=== PATIENT | male | born 1990 | race Two or more races ===

== ENCOUNTER 2021-06-21 11:31 | Emergency (ER) | payer SELFPAY ==
[~2021-06-21] VITALS: Ht 167.6 cm; Wt 67.6 kg
--- NOTE | 2021-06-21 11:41 | NUR ---
BIBS FOR C/O RIGHT HAND PAIN 09/28 AND RIGHT SHOULDER PAIN 07/29 S/P FALL OFF A LADDER TODAY AM. R HAND IS SWOLLEN WITH DRY BLOOD. WILL CONTINUE TO MONITOR THE PATIENT.
[2021-06-21] MEDS ORDERED: LIDOCAINE 1% INJ 50 ML MDV IJ ONE ×3 (13:00→13:24)
[2021-06-21] MEDS ORDERED: BACI/NEOM/POLY B OINT PKT 1 UDPKT PACKET TP ONE (13:00)
[2021-06-21] MEDS ORDERED: CEFTRIAXONE 500 MG VIAL IM ONE (13:00)
[2021-06-21] MEDS ORDERED: PENICILLIN G BENZATHINE 2.4 MMU/4 ML ML IM ONE ×2 (13:00→13:25)
[2021-06-21] MEDS ORDERED: CEFTRIAXONE 500 MG VIAL ONE (13:24)
[2021-06-21] MEDS ORDERED: IBUP-1955 PO (13:42)
[2021-06-21 14:34] VITALS: BP 131/76
--- NOTE | 2021-06-21 14:34 | NUR ---
Patient discharged to home in stable condition. Written and verbal after care instructions given. Patient verbalizes understanding of instruction.
== END 2021-06-21 14:36 | disposition home or self-care (01) ==
LOC: ER 11:34
DX: S62.306A Unspecified fracture of fifth metacarpal bone, right hand, initial encounter for closed fracture (principal); S61.411A Laceration without foreign body of right hand, initial encounter; W11.XXXA Fall on and from ladder, initial encounter; Y93.89 Activity, other specified; Y92.89 Other specified places as the place of occurrence of the external cause; Y99.9 Unspecified external cause status
CPT/HCPCS: 29125; 73130; 96372 ×2; 99284; J0558; J0696; J3490 ×2; 36415; 86592